=== PATIENT | male | born 1995 | race Caucasian/White ===

== ENCOUNTER 2022-10-04 09:31 | Emergency (ER) | payer MEDICAID, OTHER ==
[~2022-10-04] VITALS: Ht 193 cm; Wt 81.6 kg
[2022-10-04] MEDS ORDERED: SUMATRIPTAN SUCCINATE 6 MG/0.5 ML VIAL SQ ONE ×2 (09:45)
[2022-10-04 10:25] VITALS: BP 127/88; O2SAT 99
== END 2022-10-04 10:26 | disposition home or self-care (01) ==
LOC: ER 09:31
DX: G43.909 Migraine, unspecified, not intractable, without status migrainosus (principal)
CPT/HCPCS: 99285; 70450; 96372; J3030; A4663